=== PATIENT | female | born 2005 ===

== ENCOUNTER 2025-02-26 08:30 | Inpatient (IN) | payer OTHER ==
[~2025-02-26] VITALS: Ht 149.9 cm; Wt 67.1 kg
[2025-03-08] VITALS (9 sets, daily range): BP systolic 99–145; BP diastolic 55–82
[2025-03-08] MEDS ORDERED: OXYTOCIN 1,000 ML IV ONE (07:00)
[2025-03-08] MEDS ORDERED: OXYTOCIN 500 ML IV SCH (07:45)
[2025-03-08] MEDS ORDERED: PRENATA CHEWAB1 EACH PO (08:12)
[2025-03-08 09:08] LABS: BASO % 0.2 % (0.1-1.2); EOS # 0.09 (0.04-0.54); EOS % 0.9 % (0.7-7.0); LYMPH # 1.73 (1.18-3.74); LYMPH % 17.9 % (19.3-53.1); MEAN PLATELET VOLUME 10.10 fl (9.4-12.4); MONO # 1.14 (0.24-0.82); MONO % 11.8 % (4.7-12.5); NEUT # 6.56 (1.56-6.13); NEUT % 67.8 % (34.0-71.1); RED CELL DISTRIBUTION WIDTH 15.6 % (11.6-14.4)
[2025-03-08 09:20] LABS: URINE APPEARANCE Clear; URINE BILIRRUBIN Negative (NEGATIVE); URINE BLOOD Negative; URINE COLOR Yellow; URINE GLUCOSE Negative (NEGATIVE); URINE KETONE Negative (NEGATIVE); URINE LEUKOCYTE Trace; URINE NITRATE Negative; URINE PROTEIN Negative (NEGATIVE); URINE UROBILINOGEN 0.2 E.U./dl
[2025-03-08 09:24] LABS: URINE BACTERIA 206.8 uL (0.0-1933); URINE EPITHELIAL CELLS 4.2 uL (0.0-38.8); URINE RBC 5.3 uL (0.0-20.8); URINE WBC 9.9 uL (0.0-23.2)
[2025-03-08 09:27] LABS: INR 0.95
[2025-03-08 09:43] LABS: BUN CREA RATIO 27.0 (7.0-25.0); CREATININE SERUM 0.3 mg/dL (0.55-1.02); GFR 286.58; GLUCOSE FASTING 84.0 mg/dL (65-100); OSMOLALITY SERUM 279.0 MOSM/KG (275-295)
[2025-03-08 09:56] LABS: URINE CAST 0.14 uL (0.0-1.40)
[2025-03-08] MEDS ORDERED: MORPHINE SULFATE 4 MG/ML VIAL IV PRN (10:15)
[2025-03-08] MEDS ORDERED: PROMETHAZINE HCL 25 MG/ML AMPUL IV SCH (12:00)
[2025-03-08] MEDS ORDERED: PROMETHAZINE HCL 25 MG/ML AMPUL IV PRN (13:38)
[2025-03-08] MEDS ORDERED: CHLORHEXIDINE GLUCONATE 120 ML BOTTLE TP SCH (15:30)
[2025-03-08] MEDS ORDERED: OXYTOCIN 1,000 ML IV SCH (15:30)
[2025-03-08 19:20] LABS: BASO % 0.1 % (0.1-1.2); EOS # 0.00 (0.04-0.54); EOS % 0.0 % (0.7-7.0); LYMPH # 0.78 (1.18-3.74); LYMPH % 3.7 % (19.3-53.1); MEAN PLATELET VOLUME 10.10 fl (9.4-12.4); MONO # 1.38 (0.24-0.82); MONO % 6.6 % (4.7-12.5); NEUT # 18.73 (1.56-6.13); NEUT % 89.1 % (34.0-71.1); RED CELL DISTRIBUTION WIDTH 15.2 % (11.6-14.4)
[2025-03-09 01:44] VITALS: BP 105/69
[2025-03-09 08:00] VITALS: BP 116/68
[2025-03-09 16:25] VITALS: BP 124/82
[2025-03-10 01:19] VITALS: BP 125/82
[2025-03-10 08:35] VITALS: BP 117/83
[2025-03-10] MEDS ORDERED: PRENATA CHEWAB1 EACH PO (13:29)
== END 2025-03-10 14:14 | disposition home or self-care (01) | DRG 807 ==
LOC: OB/GYN 08:30 → LDR 03-08 06:37 → OB/GYN 03-08 16:05
PROVIDERS: General Practice; ADMIT Specialist; ATTEND Specialist
PROC: 10E0XZZ Delivery of Products of Conception, External Approach (ICD-10-PCS; principal; 2025-03-08)
PROC: 4A1HXCZ Monitoring of Products of Conception, Cardiac Rate, External Approach (ICD-10-PCS; 2025-03-08)
DX: O80 Encounter for full-term uncomplicated delivery (principal); Z37.0 Single live birth; Z3A.39 39 weeks gestation of pregnancy